=== PATIENT | female | born 1970 | race Caucasian/White ===

== ENCOUNTER 2024-10-21 09:51 | Emergency (ER) | payer OTHER ==
[~2024-10-21] VITALS: Ht 172.7 cm; Wt 67.0 kg
[2024-10-21 10:00] VITALS: BP 113/85; PULSE 80; RESP 18; TEMP 98; O2SAT 98
[2024-10-21] MEDS: KETOROLAC TROMETHAMINE 60 MG/2 ML VIAL IM ONE (11:17)
[2024-10-21] MEDS ORDERED: IBUP-1492 PO (12:26)
[2024-10-21] MEDS ORDERED: HYDR-4062 PO (12:26)
== END 2024-10-21 12:54 | disposition home or self-care (01) ==
LOC: EMS 10:18
DX: S82.042A Displaced comminuted fracture of left patella, initial encounter for closed fracture (principal); Z88.1 Allergy status to other antibiotic agents; Z88.2 Allergy status to sulfonamides; W01.0XXA Fall on same level from slipping, tripping and stumbling without subsequent striking against object, initial encounter; Y93.01 Activity, walking, marching and hiking; Y92.89 Other specified places as the place of occurrence of the external cause; Y99.8 Other external cause status
CPT/HCPCS: 99283; 29505; 73562; 96372; J1885